=== PATIENT | male | born 1945 | race Caucasian/White ===

== ENCOUNTER 2018-09-23 20:32 | Emergency (ER) | payer MEDICARE ==
--- NOTE | 2018-09-23 21:48 | RAD ---
EXAM DESCRIPTION: Abdomen Series CLINICAL HISTORY: 72 years Male, left flank pain COMPARISON: None. FINDINGS: No consolidation. No pneumothorax. No significant pleural effusion. Mild streaky opacity in both lung bases is suggestive of atelectasis. Cardiomediastinal silhouette is unremarkable. Bowel gas pattern appears unremarkable. No obvious dilated bowel loops. No free air. Degenerative changes of the spine noted. IMPRESSION: 1. No evidence for an acute cardiopulmonary process. 2. Unremarkable bowel gas pattern. Electronically signed by: Leonardo Lopes MD 09/23/2018 9:47 PM DIRECTOR OF DISTRICT OFFICE
--- NOTE | 2018-09-23 23:30 | CT ---
CLINICAL HISTORY: inc wbc, left abd pain, uti COMPARISON: None. TECHNIQUE: CT ABDOMEN PELVIS WITHOUT IV CONTRAST on 09/23/2018 10:47 PM [employer] ST[employer]PER This exam was performed according to our departmental dose-optimization program, which includes automated exposure control, adjustment of the mA and/or kV according to patient size and/or use of iterative reconstruction technique. FINDINGS: Lower lungs are clear. Abdomen: The liver is normal in appearance. There is no biliary dilatation. Gallbladder is normal in size with a small calcified gallstone. The pancreas and spleen are normal in appearance. Renal glands are normal. Kidneys are mildly atrophic. There is a medial upper pole right renal mass measuring 4.1 cm. There is moderate left hydronephrosis. There is a 7 mm calculus at the left UVJ. Abdominal aorta is normal in course and caliber without aneurysm. There is no free air. There is no retroperitoneal adenopathy. Pelvis: There is moderate diverticulosis of the distal colon. Urinary bladder is moderately thickened.. There is no free fluid. Appendix is normal. Skeleton: There are no acute osseous findings. No suspicious bony lesions. IMPRESSION: Moderate left hydronephrosis with an obstructing 7 mm distal left ureteral calculus. Moderate thickening of the urinary bladder. Possible mass involving the upper pole of the right kidney. Recommend contrast enhanced CT or at least ultrasound. Electronically signed by: Mango Ro MD 09/23/2018 11:28 PM MOLD STAMPER
[2018-09-23] MEDS ORDERED: PIPERACILLIN/TAZOBACTAM 3.375 GM in SODIUM CHLORIDE 0.9% 100ML 100 ML IVPB ONE (23:42)
[2018-09-23] MEDS ORDERED: CIPROFLOXACIN 500 MG TAB PO ONE (23:42)
[2018-09-24] MEDS ORDERED: PIPERACILLIN/TAZOBACTAM 3.375 GM VIAL IVPB ONE (00:14)
[2018-09-24] MEDS ORDERED: SODIUM CHLORIDE 0.9% 100ML 100 ML IVPB ONE (00:14)
--- NOTE | 2018-09-24 00:19 | ED.PDOC ---
History of Present Illness - General Chief Complaint: Neuro Symptoms/Deficits Stated Complaint: altered mental status all day Time Seen by Provider: 09/23/18 21:00 Source: patient, family Exam Limitations: no limitations - History of Present Illness Initial Comments: The patient is a 72-year-old male essentially brought in by his family members due to some very mild confusion as well as some stumbling around the house today. This had been preceded by 2-3 weeks of intermittent left flank and lower abdominal pain. No nausea or vomiting. No real urinary symptoms. He did have a urinary tract infection 5 or 6 years ago but otherwise has apparently been in pretty good health. He has had a history of intermittent constipation. No real fevers. He is alert and oriented at presentation here today. Timing/Duration: unsure Severity: moderate Improving Factors: nothing Worsening Factors: nothing Associated Symptoms: malaise Allergies/Adverse Reactions: Allergies NO KNOWN ALLERGY Allergy (Verified 09/23/18 20:54) Home Medications: Ambulatory Orders NK 09/23/18 Review of Systems - Review of Systems Constitutional: States: malaise, weakness - generalized EENTM: States: no symptoms reported Respiratory: States: no symptoms reported Cardiology: States: no symptoms reported Gastrointestinal/Abdominal: States: see HPI Genitourinary: States: see HPI Musculoskeletal: States: see HPI Skin: States: no symptoms reported Neurological: States: no symptoms reported - mild confusion Endocrine: States: no symptoms reported All other Systems: No Change from Baseline Past Medical History (General) - Patient Medical History Hx Diabetes: No Hx Cancer: Yes - skin Surgical History: tonsillectomy - Vaccination History Hx Influenza Vaccination: No Hx Pneumococcal Vaccination: No - Social History Hx Alcohol Use: No - Triage Comment ED Triage Comment: states no new symptoms, just that [id number] noticed change in normal routine all day and some confusion Family Medical History - Family History Father Family History: Unknown Physical Exam - Physical Exam General Appearance: Alert, No apparent distress, Other - he is fairly weak getting in and out of bed Eye Exam: bilateral normal - he does were glasses Ears, Nose, Throat: normal pharynx Neck: non-tender, supple Respiratory: lungs clear, normal breath sounds, no respiratory distress, no accessory muscle use Cardiovascular/Chest: normal peripheral pulses, regular rate, rhythm, no edema Peripheral Pulses: radial,right: 2+, radial,left: 2+, dorsalis pedis,right: 2+, dorsalis pedis,left: 2+ Gastrointestinal/Abdominal: soft, other - he does have moderateleft lateral abdomen and flank tenderness to palpation rather than percussion Rectal Exam: deferred Back Exam: CVA tenderness (L) Extremity: normal range of motion, non-tender, normal inspection, no pedal edema, normal capillary refill Neurologic: zinc etcher II-XII nml as tested, alert, normal mood/affect, oriented x 3 Skin Exam: normal color Comments: Vital Signs - 24 hr 09/23/18 09/23/18 09/23/18 20:48 22:48 23:00 Temperature 99.4 F Pulse Rate [ 92 H 80 73 Right] Respiratory 20 20 20 Rate Blood Pressure 159/85 114/61 162/84 [Left Arm] O2 Sat by Pulse 98 97 96 Oximetry Progress - Progress Progress: 09/24/18 00:20 the patient is a 72-year-old male presenting to the emergency room secondary to what appears to be early urosepsis. Cultures are being done. The patient is being started on Zosyn and ciprofloxacin. He does appear to have a obstructing distal left ureteral stone that will need to be dealt with. He does additionally have a 4.1 cm right renal mass. This will require additional imag ing as well. Transferred for higher level of care and specialty care with Dr. Bear. Vital signs are stable at this time. Acceptance of transfer is greatly appreciated. - Results/Orders Results/Orders: Laboratory Tests 09/23/18 09/23/18 09/23/18 21:07 21:08 21:08 WBC 21.0 H* RBC 4.32 L Hgb 14.1 Hct 43.2 MCV 99.9 H MCH 32.6 H MCHC 32.5 L RDW 14.0 Plt Count 193 MPV 8.0 Absolute Neuts (auto) 13.90 H Absolute Lymphs (auto) 4.50 H Absolute Monos (auto) 2.30 H Absolute Eos (auto) 0.00 Absolute Basos (auto) 0.20 H Neutrophils % Not Reportable Neutrophils % (Manual) 68.0 68.0 Lymphocytes % Not Reportable Lymphocytes % (Manual) 22.0 22.0 Monocytes % Not Reportable Monocytes % (Manual) 1.0 1.0 Eosinophils % 0.0 L Basophils % Not Reportable Band Neutrophils 8.0 H 8.0 H Eosinophils 1.0 1.0 Platelet Estimate Normal RBC Morph Comment Plts rebekah adequate Norm rbc morphology Sodium 137 Potassium 4.4 Chloride 106 Carbon Dioxide 22 Anion Gap 13.4 BUN 27 H Creatinine 1.15 BUN/Creatinine Ratio 23.5 H Random Glucose 133 H Serum Osmolality 280.9 Calcium 8.6 Total Bilirubin 1.7 H AST 28 ALT 14 Alkaline Phosphatase 76 Serum Total Protein 6.3 L Albumin 3.6 Globulin 2.7 Albumin/Globulin Ratio 1.3 Urine Color Urine Appearance Urine pH Ur Specific [place] Urine Protein Urine Glucose (UA) Urine Ketones Urine Blood Urine Nitrite Urine Bilirubin Urine Urobilinogen Ur Leukocyte Esterase Urine RBC Urine WBC Ur Epithelial Cells Urine Bacteria 09/23/18 21:15 WBC RBC Hgb Hct MCV MCH MCHC RDW Plt Count MPV Absolute Neuts (auto) Absolute Lymphs (auto) Absolute Monos (auto) Absolute Eos (auto) Absolute Basos (auto) Neutrophils % Neutrophils % (Manual) Lymphocytes % Lymphocytes % (Manual) Monocytes % Monocytes % (Manual) Eosinophils % Basophils % Band Neutrophils Eosinophils Platelet Estimate RBC Morph Comment Sodium Potassium Chloride Carbon Dioxide Anion Gap BUN Creatinine BUN/Creatinine Ratio Random Glucose Serum Osmolality Calcium Total Bilirubin AST ALT Alkaline Phosphatase Serum Total Protein Albumin Globulin Albumin/Globulin Ratio Urine Color Yellow Urine Appearance Cloudy Urine pH 6.0 Ur Specific [place] >= 1.030 Urine Protein 100 H Urine Glucose (UA) Negative Urine Ketones Negative Urine Blood Large H Urine Nitrite Positive H Urine Bilirubin Negative Urine Urobilinogen 1.0 Ur Leukocyte Esterase Large H Urine RBC >50 H Urine WBC 30-40 H Ur Epithelial Cells 0 Urine Bacteria 1+ CT scan of abdomen and pelvis shows a 7 mm obstructing distal left ureteral stone with proximal hydronephrosis and hydroureter. There is some thickening of the gallbladder. He also has a 4.1 cm right renal mass. Departure - Departure Clinical Impression: Obstructive uropathy, Renal mass Urinary tract infection Qualifiers: Urinary tract infection type: acute pyelonephritis Qualified Code(s): N10 - Acute pyelonephritis Sepsis Qualifiers: Sepsis type: sepsis due to unspecified organism Qualified Code(s): A41.9 - Sepsis, unspecified organism Disposition: Transfer to Hospital Referrals: Vern Owusu III, MD [Primary Care Provider] - 1-2 Weeks Home Medications: Ambulatory Orders NK 09/23/18 Transfer to Outside Facility - Transfer Information Accepting Provider:: giles diaz Accepting Facility: [facility] Reason for Transfer: required specialist not available
[2018-09-24 00:35] VITALS: O2SAT 98
[2018-09-24 00:52] VITALS: BP 160/83; TEMP 99.7
== END 2018-09-24 01:10 | disposition short-term general hospital (02) ==
LOC: ER 20:32
DX: A41.9 Sepsis, unspecified organism (principal); N10 Acute pyelonephritis; N13.2 Hydronephrosis with renal and ureteral calculous obstruction; N28.89 Other specified disorders of kidney and ureter; Z85.828 Personal history of other malignant neoplasm of skin
CPT/HCPCS: 74019; 74176; 80053; 81001; 83605; 85025; 87086; J2543; J7050